=== PATIENT | male | born 2000 | race Hispanic/Latino ===

== ENCOUNTER 2022-10-28 17:22 | Emergency (ER) | payer OTHER ==
[~2022-10-28] VITALS: Ht 185.4 cm; Wt 113.4 kg
[2022-10-28] MEDS ORDERED: LORAZEPAM 1 MG TAB PO PRN (17:45)
[2022-10-28 18:23] VITALS: BP 132/72
== END 2022-10-28 18:25 | disposition home or self-care (01) ==
LOC: ER 17:30
DX: R07.89 Other chest pain (principal); F41.9 Anxiety disorder, unspecified; K21.9 Gastro-esophageal reflux disease without esophagitis
CPT/HCPCS: 71046; 93005; 99284

== ENCOUNTER 2023-02-11 20:48 | Emergency (ER) | payer OTHER ==
[~2023-02-11] VITALS: Ht 185.4 cm; Wt 113.4 kg
[2023-02-11 22:06] LABS: BASOPHILS % 0.4 % (0.0-1.0); EOSINOPHILS % 0.3 % (0.0-6.0); HEMATOCRIT 45.4 % (38.2-49.6); HEMOGLOBIN 15.9 g/dL (14.0-18.0); LYMPHOCYTES # (AUTO) 1.8 (1.0-3.2); MEAN CORPUSCULAR HEMOGLOBIN 29.4 pg (28-32); MEAN CORPUSCULAR VOLUME 84.1 fL (81-99); MONOCYTES # (AUTO) 0.5 (0.2-0.8); MONOCYTES % 6.9 % (4.4-11.3); NEUTROPHILS # (AUTO) 5.4 (2.1-6.9); NEUTROPHILS % 68.8 % (38.7-80.0); PLATELET COUNT 329 x10e3/uL (140-360); RED CELL DISTRIBUTION WIDTH 12.2 % (11.7-14.4)
[2023-02-11 22:11] LABS: AMPHETAMINES SCREEN,URINE NEGATIVE (NEGATIVE); BENZODIAZEPINES SCREEN,URINE NEGATIVE (NEGATIVE); PHENCYCLIDINE SCREEN,URINE NEGATIVE (NEGATIVE)
[2023-02-11 22:20] LABS: SALICYLATE < 5.0 mg/dL (0-30)
[2023-02-11 22:21] LABS: ALBUMIN/GLOBULIN RATIO 1.5 (0.8-2.0); ANION GAP 15.2 mmol/L (8-16); CALCIUM 10.1 mg/dL (8.4-10.2); CREATININE, SERUM 1.02 mg/dL (0.72-1.25); POTASSIUM 4.2 mmol/L (3.5-5.1)
[2023-02-12] MEDS ORDERED: UNISOM SLEEP AI25 MG PO (00:50)
[2023-02-12] MEDS ORDERED: DIPHENHYDRAMINE HCL 25 MG CAP PO STA (00:51)
[2023-02-12 01:25] VITALS: BP 155/81; O2SAT 100
== END 2023-02-12 01:16 | disposition home or self-care (01) ==
LOC: ER 20:55
DX: F42.9 Obsessive-compulsive disorder, unspecified (principal); Z20.822 Contact with and (suspected) exposure to COVID-19; K21.9 Gastro-esophageal reflux disease without esophagitis; F41.9 Anxiety disorder, unspecified
CPT/HCPCS: 0223U; 36415; 80053; 80307; 80320; 80329 ×2; 85025; 99284